=== PATIENT | female | born 1965 | race Native Hawaiian/Other Pacific Islander ===

== ENCOUNTER 2017-05-08 09:11 | Emergency (ER) | payer OTHER ==
[~2017-05-08] VITALS: Ht 157.5 cm; Wt 65.8 kg
== END 2017-05-08 10:35 | disposition home or self-care (01) ==
LOC: ED 09:11
DX: M54.6 Pain in thoracic spine (principal); M62.830 Muscle spasm of back; I16.0 Hypertensive urgency
CPT/HCPCS: 99282